=== PATIENT | male | born 1995 | race Hispanic/Latino ===

== ENCOUNTER 2016-07-10 22:23 | Emergency (ER) | payer OTHER ==
--- NOTE | 2016-07-11 00:38 | EDDOCDS ---
Nurse's Notes [facility] Name: Chiki Alas Age: 21 yrs Sex: Male : 1995 Arrival Date: 07/10/2016 Time: 22:23 Bed TR7 Private MD: Other - Complete Info On Cds Diagnosis: Deficient foreskin-superficial traumatic tear Presentation: 07/10 22:36 Presenting complaint: Patient states: Just finished having sex and noticed that [facility] foreskin was tore--is bleeding. Adult Sepsis Screening: The patient does not have new or worsening altered mentation. Patient's respiratory rate is less than 22. Systolic blood pressure is greater than 100. Patient has a qSOFA score of 0- Negative Sepsis Screen. Suicide/Homicide risk assessment- the patient denies having any suicidal and/or homicidal ideations and does not present with any other emotional, behavioral or mental health complaints. Status: The patient is an active duty pump servicer. Transition of care: patient was not received from another setting of care. 22:36 Acuity: MARCY Level 4 [facility] 22:36 Method Of Arrival: Walkin/Carried/Asstd [facility] Triage Assessment: 22:37 General: Appears in no apparent distress, Behavior is cooperative. Pain: Denies pain. [facility] HIV screening NA for this visit Offered previously. Neurological: No deficits noted. Respiratory: Airway is patent Respiratory effort is even, unlabored. : Reports bleeding from foreskin. Derm: Skin is pink, warm & dry. Historical: - Allergies: SHELLFISH; - Home Meds: 1. none - PMHx: none; - PSHx: none; - Social history: Smoking status: Patient uses tobacco products, light tobacco smoker. No barriers to communication noted, The patient speaks fluent Portuguese. - Family history: Not pertinent. - : The pt / caregiver states he / she is not on anticoagulants. Home medication list is obtained from the patient. - Exposure Risk Screening:: None identified. Screenin/08 00:36 Screening information is obtained from the patient. Fall risk: No risks identified. cz Assistance ADL's: requires no assistance with activities of daily living. Abuse/DV Screen: The patient / caregiver reports he/she is: not in a situation that causes fear, pain or injury. Nutritional screening: No deficits noted. Advance Directives: Currently, there is no health care proxy. There is no active DNR order. There is no living will. There is no Power of Data Entry. Advance directive information has not previously been placed in an [facility] medical record. home support is adequate. Assessment: 00:36 General: alert male with minor tear to foreskin of penis no acute bleeding. cz Vital Signs: 07/10 22:25 BP 135 / 72; Pulse 86; Resp 18 S; Temp 98.9(O); Pulse Ox 97% on R/A; Weight 64.86 kg gr2 (R); Height 5 ft. 5 in. (165.10 cm) (R); Pain 7/10; 22:25 Body Mass Index 23.80 (64.86 kg, 165.10 cm) gr2 Vitals: 22:25 Log In Time: July 10, 2016 at 22:25. gr2 ED Course: 22:24 Patient visited by Joanna Sesay. gr2 22:24 Other - Complete Info On Cds is Private Physician. gr2 22:24 Patient moved to Waiting gr2 22:27 Patient visited by Joanna Sesay. gr2 22:27 Patient moved to Pre RCE gr2 22:37 Triage Initiated mcp 22:38 Patient visited by Susan Funez RN. [facility] 23:58 Patient moved to MTA Wait 07/11 00:04 Patient moved to Triage 3 cz 00:05 Bob Noble PA-C is PHCP. ar2 00:05 Forrest Roberson DO is Attending Physician. ar2 00:05 Patient visited by Bob Noble PA-C. ar2 00:23 SOL Walls is Referral Physician. ar2 00:35 Patient moved to TR7 cz 00:36 The patient / caregiver is instructed regarding the plan of care and ED course. cz 00:36 No IV's were initiated during this patient's visit. No procedures done that require cz assistance. Order Results: There are currently no results for this order. Outcome: 00:23 Discharge ordered by Provider. ar2 00:36 Discharge Assessment: Patient awake, alert and oriented x 3. No cognitive and/or cz functional deficits noted. Patient verbalized understanding of disposition instructions. patient administered narcotics - no. The following High Risk Discharge criteria are identified: None. Discharged to home ambulatory. Condition: stable. Discharge instructions given to patient, Instructed on discharge instructions, follow up and referral plans. Demonstrated understanding of instructions, Pt was receptive of discharge instructions/ teaching. No special radiology studies were completed. Property :Personal belongings accompany Pt. 00:37 Patient left the ED. cz Signatures: Susan Funez RN RN Donta Stallworth RN RN cz Robertshaw, Aaron, SHEN GOTTI ar2 Joanna Sesay gr2 MTDD
--- NOTE | 2016-07-11 00:38 | EDDOCDS ---
Physician Documentation [facility] Name: Chiki Alas Age: 21 yrs Sex: Male : 1995 Arrival Date: 07/10/2016 Time: 22:23 Bed TR7 Private MD: Other - Complete Info On Cds Disposition: 07/11/16 00:23 Discharged to Home/Self Care. Impression: Deficient foreskin - superficial traumatic tear. - Condition is Stable. - Discharge Instructions: Abrasion. - Prescriptions for Neosporin (bethanie- salvatore-polym) 3.5mg-400 unit- 5,000 unit/gram Topical Ointment - apply to affected area 1 application by TOPICAL route 2 times per day; 15 gram. - Medication Reconciliation, Local Pharmacy Hours form. - Follow up: SOL Walls; When: As needed; Reason: Recheck today's complaints. - Problem is new. - Symptoms are unchanged. - Notes: keep wound clean and dry. apply ointment as directed. return if signs of infection Historical: - Allergies: SHELLFISH; - Home Meds: 1. none - PMHx: none; - PSHx: none; - Social history: Smoking status: Patient uses tobacco products, light tobacco smoker. No barriers to communication noted, The patient speaks fluent Mohawk. - Family history: Not pertinent. - : The pt / caregiver states he / she is not on anticoagulants. Home medication list is obtained from the patient. - Exposure Risk Screening:: None identified. Vital Signs: 07/10 22:25 BP 135 / 72; Pulse 86; Resp 18 S; Temp 98.9(O); Pulse Ox 97% on R/A; Weight 64.86 kg / gr2 142.99 lbs (R); Height 5 ft. 5 in. (165.10 cm) (R); Pain 7/10; 22:25 Body Mass Index 23.80 (64.86 kg, 165.10 cm) gr2 MDM: 07/11 00:23 Wound Care ordered. ar2 00:23 Financial registration complete. hs2 Signatures: Susan Funez RN RN Donta Stallworth RN RN cz Robertshaw, Aaron, SHEN PACarlos ar2 Nany Wu, Reg Reg hs2 MTDD
--- NOTE | 2016-07-13 12:11 | EDDOCDS ---
Physician Documentation [facility] Name: Chiki Alas Age: 21 yrs Sex: Male : 1995 Arrival Date: 07/10/2016 Time: 22:23 Bed TR7 Private MD: Other - Complete Info On Cds Disposition: 07/11/16 00:23 Discharged to Home/Self Care. Impression: Deficient foreskin - superficial traumatic tear. - Condition is Stable. - Discharge Instructions: Abrasion. - Prescriptions for Neosporin (bethanie- salvatore-polym) 3.5mg-400 unit- 5,000 unit/gram Topical Ointment - apply to affected area 1 application by TOPICAL route 2 times per day; 15 gram. - Medication Reconciliation, Local Pharmacy Hours form. - Follow up: SOL Walls; When: As needed; Reason: Recheck today's complaints. - Problem is new. - Symptoms are unchanged. - Notes: keep wound clean and dry. apply ointment as directed. return if signs of infection Historical: - Allergies: SHELLFISH; - Home Meds: 1. none - PMHx: none; - PSHx: none; - Social history: Smoking status: Patient uses tobacco products, light tobacco smoker. No barriers to communication noted, The patient speaks fluent German. - Family history: Not pertinent. - : The pt / caregiver states he / she is not on anticoagulants. Home medication list is obtained from the patient. - Exposure Risk Screening:: None identified. Vital Signs: 07/10 22:25 BP 135 / 72; Pulse 86; Resp 18 S; Temp 98.9(O); Pulse Ox 97% on R/A; Weight 64.86 kg / gr2 142.99 lbs (R); Height 5 ft. 5 in. (165.10 cm) (R); Pain 7/10; 22:25 Body Mass Index 23.80 (64.86 kg, 165.10 cm) gr2 MDM: 07/11 00:23 Wound Care ordered. ar2 00:23 Financial registration complete. hs2 04:03 [facility] Payment Agreement was scanned into [employer] and attached to record. hs2 08:17 T-Sheet-- Draft Copy was scanned into [employer] and attached to record. [facility] Signatures: Susan Funez RN RN mcp Zecher, Calvin, RN RN cz Robertshaw, Bob, PA-C PACarlos ar2 Nany Wu, Reg Reg hs2 Melissa Baldwin The chart was reviewed and I authenticate all verbal orders and agree with the evaluation and treatment provided.Attachments: 04:03 [facility] Payment Agreement hs2 08:17 T-Sheet-- Draft Copy [facility] Chart Complete MTDD
--- NOTE | 2016-07-13 12:11 | EDDOCDS ---
Physician Documentation [facility] Name: Chiki Alas Age: 21 yrs Sex: Male : 1995 Arrival Date: 07/10/2016 Time: 22:23 Bed TR7 Private MD: Other - Complete Info On Cds Disposition: 07/11/16 00:23 Discharged to Home/Self Care. Impression: Deficient foreskin - superficial traumatic tear. - Condition is Stable. - Discharge Instructions: Abrasion. - Prescriptions for Neosporin (bethanie- salvatore-polym) 3.5mg-400 unit- 5,000 unit/gram Topical Ointment - apply to affected area 1 application by TOPICAL route 2 times per day; 15 gram. - Medication Reconciliation, Local Pharmacy Hours form. - Follow up: SOL Walls; When: As needed; Reason: Recheck today's complaints. - Problem is new. - Symptoms are unchanged. - Notes: keep wound clean and dry. apply ointment as directed. return if signs of infection Historical: - Allergies: SHELLFISH; - Home Meds: 1. none - PMHx: none; - PSHx: none; - Social history: Smoking status: Patient uses tobacco products, light tobacco smoker. No barriers to communication noted, The patient speaks fluent Lao. - Family history: Not pertinent. - : The pt / caregiver states he / she is not on anticoagulants. Home medication list is obtained from the patient. - Exposure Risk Screening:: None identified. Vital Signs: 07/10 22:25 BP 135 / 72; Pulse 86; Resp 18 S; Temp 98.9(O); Pulse Ox 97% on R/A; Weight 64.86 kg / gr2 142.99 lbs (R); Height 5 ft. 5 in. (165.10 cm) (R); Pain 7/10; 22:25 Body Mass Index 23.80 (64.86 kg, 165.10 cm) gr2 MDM: 07/11 00:23 Wound Care ordered. ar2 00:23 Financial registration complete. hs2 04:03 [facility] Payment Agreement was scanned into [employer] and attached to record. hs2 08:17 T-Sheet-- Draft Copy was scanned into [employer] and attached to record. [facility] Signatures: Susan Funez RN RN mcp Zecher, Calvin, RN RN cz Robertshaw, Bob, PA-C PACarlos ar2 Nany Wu, Reg Reg hs2 Melissa Baldwin The chart was reviewed and I authenticate all verbal orders and agree with the evaluation and treatment provided.Attachments: 04:03 [facility] Payment Agreement hs2 08:17 T-Sheet-- Draft Copy [facility] Chart Complete MTDD
--- NOTE | 2016-07-13 12:11 | EDDOCDS ---
Nurse's Notes [facility] Name: Chiki Alas Age: 21 yrs Sex: Male : 1995 Arrival Date: 07/10/2016 Time: 22:23 Bed TR7 Private MD: Other - Complete Info On Cds Diagnosis: Deficient foreskin-superficial traumatic tear Presentation: 07/10 22:36 Presenting complaint: Patient states: Just finished having sex and noticed that [facility] foreskin was tore--is bleeding. Adult Sepsis Screening: The patient does not have new or worsening altered mentation. Patient's respiratory rate is less than 22. Systolic blood pressure is greater than 100. Patient has a qSOFA score of 0- Negative Sepsis Screen. Suicide/Homicide risk assessment- the patient denies having any suicidal and/or homicidal ideations and does not present with any other emotional, behavioral or mental health complaints. Status: The patient is an active duty service cashier. Transition of care: patient was not received from another setting of care. 22:36 Acuity: MARCY Level 4 [facility] 22:36 Method Of Arrival: Walkin/Carried/Asstd [facility] Triage Assessment: 22:37 General: Appears in no apparent distress, Behavior is cooperative. Pain: Denies pain. [facility] HIV screening NA for this visit Offered previously. Neurological: No deficits noted. Respiratory: Airway is patent Respiratory effort is even, unlabored. : Reports bleeding from foreskin. Derm: Skin is pink, warm & dry. Historical: - Allergies: SHELLFISH; - Home Meds: 1. none - PMHx: none; - PSHx: none; - Social history: Smoking status: Patient uses tobacco products, light tobacco smoker. No barriers to communication noted, The patient speaks fluent Slovak. - Family history: Not pertinent. - : The pt / caregiver states he / she is not on anticoagulants. Home medication list is obtained from the patient. - Exposure Risk Screening:: None identified. Screenin/08 00:36 Screening information is obtained from the patient. Fall risk: No risks identified. cz Assistance ADL's: requires no assistance with activities of daily living. Abuse/DV Screen: The patient / caregiver reports he/she is: not in a situation that causes fear, pain or injury. Nutritional screening: No deficits noted. Advance Directives: Currently, there is no health care proxy. There is no active DNR order. There is no living will. There is no Power of Residential Mortgage Underwriter. Advance directive information has not previously been placed in an [facility] medical record. home support is adequate. Assessment: 00:36 General: alert male with minor tear to foreskin of penis no acute bleeding. cz Vital Signs: 07/10 22:25 BP 135 / 72; Pulse 86; Resp 18 S; Temp 98.9(O); Pulse Ox 97% on R/A; Weight 64.86 kg gr2 (R); Height 5 ft. 5 in. (165.10 cm) (R); Pain 7/10; 22:25 Body Mass Index 23.80 (64.86 kg, 165.10 cm) gr2 Vitals: 22:25 Log In Time: July 10, 2016 at 22:25. gr2 ED Course: 22:24 Patient visited by Joanna Sesay. gr2 22:24 Other - Complete Info On Cds is Private Physician. gr2 22:24 Patient moved to Waiting gr2 22:27 Patient visited by Joanna Sesay. gr2 22:27 Patient moved to Pre RCE gr2 22:37 Triage Initiated mcp 22:38 Patient visited by Susan Funez RN. mcp 23:58 Patient moved to MTA Wait cz 07/11 00:04 Patient moved to Triage 3 cz 00:05 Bob Noble PA-C is PHCP. ar2 00:05 Forrest Roberson DO is Attending Physician. ar2 00:05 Patient visited by Bob Noble PA-C. ar2 00:23 SOL Walls is Referral Physician. ar2 00:35 Patient moved to TR7 cz 00:36 The patient / caregiver is instructed regarding the plan of care and ED course. cz 00:36 No IV's were initiated during this patient's visit. No procedures done that require assistance. 04:03 [facility] Payment Agreement was scanned into [employer] and attached to record. hs2 04:04 Patient name changed from Chiki\S\\S\Alas\S\ to Chiki\S\Mendoza\S\Alas. EDMS 08:17 T-Sheet-- Draft Copy was scanned into [employer] and attached to record. [facility] Order Results: There are currently no results for this order. Outcome: 00:23 Discharge ordered by Provider. ar2 00:36 Discharge Assessment: Patient awake, alert and oriented x 3. No cognitive and/or cz functional deficits noted. Patient verbalized understanding of disposition instructions. patient administered narcotics - no. The following High Risk Discharge criteria are identified: None. Discharged to home ambulatory. Condition: stable. Discharge instructions given to patient, Instructed on discharge instructions, follow up and referral plans. Demonstrated understanding of instructions, Pt was receptive of discharge instructions/ teaching. No special radiology studies were completed. Property :Personal belongings accompany Pt. 00:37 Patient left the ED. cz Signatures: Dispatcher [employer] EDMS Susan Funez RN RN Donta Stallworth RN RN cz Bob Noble, PA-C PA-C ar2 Joanna Sesay gr2 Nany Wu, Reg Reg hs2 Melissa Baldwin Chart Complete MTDD
== END 2016-07-11 00:37 | disposition home or self-care (01) ==
LOC: M ED 22:23
DX: N47.3 Deficient foreskin (principal); Z91.013 Allergy to seafood; F17.210 Nicotine dependence, cigarettes, uncomplicated

== ENCOUNTER 2016-12-27 22:03 | Emergency (ER) | payer OTHER ==
[~2016-12-27] VITALS: Ht 165.1 cm; Wt 69.1 kg
[2016-12-27] MEDS ORDERED: cefTRIAXone SOD 1 GM in D5W MINI-BAG PLUS 50 ML IV ONE (22:30)
[2016-12-27] MEDS ORDERED: ONDANSETRON 4MG/2ML VIAL (J2405) IV ONE (22:30)
[2016-12-27] MEDS ORDERED: NS 1,000 ML IV ONE (22:30)
[2016-12-27 22:58] LABS: MEAN CORPUSCULAR HEMOGLOBIN 32.2 pg (27.0-33.0); MEAN CORPUSCULAR HGB CONC 34.8 g/dl (32.0-36.5); MEAN CORPUSCULAR VOLUME 92.7 fl (80.0-96.0); RED CELL DISTRIBUTION WIDTH 12.1 % (11.5-14.5); WHITE BLOOD COUNT 14.6 K/mm3 (4.0-10.0)
[2016-12-27 23:16] LABS: ANION GAP 6 MEQ/L (8-16); BLOOD UREA NITROGEN 8 MG/DL (7-18); CALCIUM LEVEL 9.1 MG/DL (8.5-10.1); CARBON DIOXIDE LEVEL 30 MEQ/L (21-32); CHLORIDE LEVEL 102 MEQ/L (98-107); CREATININE FOR GFR 0.99 MG/DL (0.70-1.30); GLOMERULAR FILTRATION RATE > 60.0 (>60); GLUCOSE, FASTING 98 MG/DL (70-105); POTASSIUM SERUM 3.3 MEQ/L (3.5-5.1); SODIUM LEVEL 138 MEQ/L (136-145)
[2016-12-27] MEDS ORDERED: ZOFR4TAB3 PO (23:25)
[2016-12-27] MEDS ORDERED: PENI500T OR (23:25)
[2016-12-27 23:36] VITALS: BP 123/65
== END 2016-12-27 23:41 | disposition home or self-care (01) ==
LOC: M ED 23:04
DX: J02.9 Acute pharyngitis, unspecified (principal)
CPT/HCPCS: 80048; 85027; 96374; 96375; 99283; J0696; J2405